=== PATIENT | female | born 1995 | race Caucasian/White ===

== ENCOUNTER 2016-09-17 10:43 | Emergency (ER) | payer BC ==
[2016-09-17] MEDS ORDERED: NS 1,000 ML IV ONE (10:55)
[2016-09-17 11:01] LABS: % IMMATURE GRANULYOCYTES 0.2 % (0.0-1.1); ABSOLUTE IMMATURE GRANULOCYTES 0.02 10^3/uL (0.00-0.10); ADD DIFF? NO; ADD MORPH? NO; ADD SCAN? NO; ATYPICAL LYMPHOCYTE FLAG 10 (0-99); FRAGMENT RBC FLAG 0 (0-99); HEMATOCRIT 42.5 % (38.0-47.0); HEMOGLOBIN 14.5 g/dL (12.6-16.3); LEFT SHIFT FLG 0 (0-99); LIPEMIA HEMOLYSIS FLAG 90 (0-99); MEAN CELL HEMOGLOBIN 31.5 pg (27.9-34.1); MEAN CELL HEMOGLOBIN CONCENTR. 34.1 g/dL (32.4-36.7); MEAN CELL VOLUME 92.4 fL (81.5-99.8); MEAN PLATELET VOLUME 8.5 fL (8.7-11.7); PLATELET CLUMPS FLAG 0 (0-99); PLATELET COUNT 297 10^3/uL (150-400); RED CELL DISTRIBUTION WIDTH 13.1 % (11.5-15.2)
--- NOTE | 2016-09-17 11:01 | EDPHY ---
H & P Time Seen by Provider: 09/17/16 10:54 HPI/ROS: Chief complaint. with IUD, pelvic pain HPI. 21-year-old female with 2-3 days of nausea and left lower quadrant pain. She went to see her physician today and had a positive test. She has an IUD this been in place for a year and a half. No vaginal spotting or bleeding or unusual discharge. No urinary symptoms. No fever. She is now 1 para 0. She does not wish to continue this . Steady sexual partner ROS Constitutional. no fever/chills, no weakness Eyes. no problems with vision ENT. no sore throat, no nasal drainage Cardiovascular. no chest pain Respiratory. no shortness of breath, no cough Abdominal. Left lower quadrant abdominal pain with nausea . no problems urinating MS. no calf pain/swelling, no neck/back pain, no joint pain Skin. no rash Lymph. no swollen glands Neuro. no headache, no dizziness, no difficulty walking or with speech Past Medical/Surgical History: Healthy Social History: Single, nonsmoker, no alcohol Smoking Status: Never smoked Physical Exam: General Appearance: Alert pleasant well-developed female tearful stable vital signs mild distress Eyes: Pupils equal and round no pallor or injection. ENT, Mouth: Mucous membranes are moist. Respiratory: There are no retractions, lungs are clear to auscultation. Cardiovascular: Regular rate and rhythm. Gastrointestinal: Abdomen is soft with left lower quadrant tenderness. No masses are palpable. Neurological: Awake and alert, sensory and motor exams grossly normal. Skin: Warm and dry, no rashes. Musculoskeletal: Neck is supple nontender. Extremities symmetrical, full range of motion. Psychiatric: Patient is oriented X 3, there is no agitation. Constitutional: Initial Vital Signs Temperature (C) 37 C 09/17/16 10:43 Heart Rate 102 H 09/17/16 10:43 Respiratory Rate 18 09/17/16 10:43 Blood Pressure 133/88 H 09/17/16 10:43 O2 Sat (%) 93 09/17/16 10:43 O2 Delivery Mode Room Air Allergies/Adverse Reactions: No Known Allergies Allergy (Unverified 09/17/16 10:44) Home Medications: Medication Instructions Recorded NK [No Known Home Meds] 09/17/16 Medical Decision Making - Diagnostics Imaging: Ultrasound reviewed and discussed with Dr. Choi shows a 6 week 4 day IUP. No evidence for ectopic. Ovaries are normal. IUD is low riding in the cervix and not in good position. Procedures: IV normal saline ED Course/Re-evaluation: Re-evaluation the patient is stable. She and I discussed imaging and lab results. We discussed treatment plan including criteria for return importance of follow-up further evaluation. She expresses understanding and agreement I consulted and discussed case with Dr. Denise Martinez who recommends IUD removal. I have discussed this with the patient and she is amenable to this Procedure IUD removal by me without difficulty Differential Diagnosis: I considered ectopic , urinary tract infection, IUP - Data Points Laboratory Results: Laboratory Results 09/17/16 10:54 09/17/16 10:54 09/17/16 10:54 WBC 8.36 10^3/uL (3.80-9.50) RBC 4.60 10^6/uL (4.18-5.33) Hgb 14.5 g/dL (12.6-16.3) Hct 42.5 % (38.0-47.0) MCV 92.4 fL (81.5-99.8) MCH 31.5 pg (27.9-34.1) MCHC 34.1 g/dL (32.4-36.7) RDW 13.1 % (11.5-15.2) Plt Count 297 10^3/uL (150-400) MPV 8.5 L fL (8.7-11.7) Neut % (Auto) 61.9 % (39.3-74.2) Lymph % (Auto) 28.9 % (15.0-45.0) [place] % (Auto) 8.0 % (4.5-13.0) Eos % (Auto) 0.5 L % (0.6-7.6) Baso % (Auto) 0.5 % (0.3-1.7) Nucleat RBC Rel Count 0.0 % (0.0-0.2) Absolute Neuts (auto) 5.17 10^3/uL (1.70-6.50) Absolute Lymphs (auto) 2.42 10^3/uL (1.00-3.00) Absolute Monos (auto) 0.67 10^3/uL (0.30-0.80) Absolute Eos (auto) 0.04 10^3/uL (0.03-0.40) Absolute Basos (auto) 0.04 10^3/uL (0.02-0.10) Absolute Nucleated RBC 0.00 10^3/uL (0-0.01) Immature Gran % 0.2 % (0.0-1.1) Immature Gran # 0.02 10^3/uL (0.00-0.10) Sodium 137 mEq/L (134-144) Potassium 4.2 mEq/L (3.5-5.2) Chloride 102 mEq/L (97-110) Carbon Dioxide 24 mEq/l (22-31) Anion Gap 11 mEq/L (8-16) BUN 7 mg/dL (7-23) Creatinine 0.6 mg/dL (0.6-1.0) Estimated GFR > 60 Glucose 84 mg/dL (70-100) Calcium 9.3 mg/dL (8.5-10.4) Total Bilirubin 0.7 mg/dL (0.1-1.4) AST 21 IU/L (14-46) ALT 21 IU/L (9-52) Alkaline Phosphatase 60 IU/L (38-126) Total Protein 6.8 g/dL (6.3-8.2) Albumin 4.0 g/dL (3.5-5.0) Beta HCG, Quant 11012.00 H mIU/mL (0-4.83) Medications Given: Discontinued Medications Sodium Chloride (Ns) 1,000 mls @ 0 mls/hr IV ONCE ONE PRN Reason: Wide Open Stop: 09/17/16 10:56 Last Admin: 09/17/16 11:05 Dose: 1,000 mls Departure - Departure Disposition: Home, Routine, Self-Care Clinical Impression: First trimester Condition: Good Instructions: (ED) Additional Instructions: Tylenol or ibuprofen as needed for discomfort. [facility] [place] [facility] to arrange termination of . Return worsening pain, vaginal bleeding, fever Referrals: OUT OF STATE,. [Primary Care Provider] - As per Instructions [facility] [Outside] - As per Instructions
[2016-09-17 11:14] LABS: ALANINE AMINOTRANSFERASE 21 IU/L (9-52); ALKALINE PHOSPHATASE 60 IU/L (38-126); ANION GAP 11 mEq/L (8-16); ASPARTATE AMINOTRANSFERASE 21 IU/L (14-46); BILIRUBIN,TOTAL 0.7 mg/dL (0.1-1.4); CALCIUM 9.3 mg/dL (8.5-10.4); CARBON DIOXIDE 24 mEq/l (22-31); CHLORIDE 102 mEq/L (97-110); CREATININE 0.6 mg/dL (0.6-1.0); GLOMERULAR FILTRATION RATE > 60; GLUCOSE 84 mg/dL (70-100); POTASSIUM 4.2 mEq/L (3.5-5.2); SODIUM 137 mEq/L (134-144); TOTAL PROTEIN 6.8 g/dL (6.3-8.2)
--- NOTE | 2016-09-17 13:14 | US ---
Ultrasound Pelvis Complete (Transabdominal and Endovaginal) Including Duplex/Doppler Imaging History: Pelvic pain. IUD. Technique: Transabdominal and endovaginal ultrasound images were obtained. Endovaginal images obtain ed for better evaluation of the uterine myometrium and adnexa. Duplex/Doppler imaging of adnexa. Findings: Uterus measures 9.2 x 4.8 x 5.8 cm. IUD is in the lower endocervical region. There is a si ngle viable intrauterine in the uterus with a pole demonstrating crown-rump length of 6.72 mm corresponding to estimated gestational age of 6 weeks 4 days. heart rate is 132 beats per minute. Yolk sac noted. No subchorionic hemorrhage. Right ovary measures 2 x 1.4 x 1 cm. Left ovary measures 2.9 x 2.2 x 1.7 cm. No adnexal masses. Minim al free fluid in the pelvis. Color Doppler flow to both ovaries without torsion. Impression: 1. Single IUP with estimated gestational age of 6 weeks 4 days, GUILLERMINA May 09, 2017, consistent with LMP. 2. FHR 132 bpm. 3. IUD in the lower endocervical canal. 4. No ovarian torsion, adnexal masses or significant free fluid. Findings and recommendations discussed with Emergency Department physician, Dr. Zay Vences, at 1240 hours today. Final report concurs with initial preliminary interpretation.
[2016-09-17 14:30] VITALS: BP 124/81; PULSE 88; RESP 17; TEMP 98.8; O2SAT 98
== END 2016-09-17 14:29 | disposition home or self-care (01) ==
DX: O26.891 Other specified pregnancy related conditions, first trimester (principal); R10.2 Pelvic and perineal pain; Z3A.01 Less than 8 weeks gestation of pregnancy